=== PATIENT | female | born 1945 | race Caucasian/White ===

== ENCOUNTER → 2019-12-21 13:32 | Outpatient (REF) | payer MEDICARE, SELFPAY | LOC: ANHLAB 13:32 | PROVIDERS: PCP Internal Medicine; Visit Provider Nurse Practitioner | DX: D49.2 Neoplasm of unspecified behavior of bone, soft tissue, and skin (principal) | CPT/HCPCS: 88305 ==

== ENCOUNTER 2022-04-24 00:44 | Day surgery (SDC) | payer MEDICARE, SELFPAY ==
[2022-04-11 14:49] VITALS: BMI 35.0
--- NOTE | 2022-04-11 15:07 | PC.NURSE ---
Report to the Outpatient Waiting Room, entrance under the green pavilion located off [facility], at time __0730 on date _04/24/22 . OR Time: __30 . - You and your visitor will be asked a series of questions to screen for COVID 19 for your protection. - Only one visitor is allowed at this time. - The patient visitor is requested to leave or wait in car when not with patient. - A mask is required within the hospital. Patients may have clear liquids (water, carbonated beverages, clear teas, apple juice) until 3 hours prior to surgery (0630 AM) with a maximum of 20 ounces. - No food from midnight until time of surgery - Infants may have breast milk until 4 hours before surgery, infant formula 6 hours prior to surgery. - Children will be allowed to drink immediately following surgery. If applicable, please bring a bottle or sippy cup to assist with drinking. Juice, water, soda, and popsicles are readily available. For infants on formula, please bring formula the day of surgery. Pacifiers are allowed. Take the following medications with a SIP of water the morning of surgery: __INHALER, EYE DROPS__ Medications to discontinue per ANESTHESIA - PROBIOTIC 3 DAYS PRIOR TO SURGERY, Date to take last dose 04/20/22_ Please no make-up, nail kazakh, hairspray, perfume, deodorant, or body powder the day of surgery. No jewelry (including any body piercings) or valuables the day of surgery, leave them at home. Please take a shower or bath the night before, or the morning of, surgery with an antibacterial soap. Wear comfortable, loose fitting clothing. Children are encouraged to wear pajamas. - Jewelry must be removed prior to entering the operating room. Rings and piercings that are not removed may be cut off. - The hospital will not accept responsibility for valuables. - Please leave all valuables, including medications, at home the day of surgery. If you are going home after surgery, a licensed regional dedicated truck driver must drive you home. - NO public transportation without another adult. - We recommend that an adult stay with you for 24 hours following discharge. - We also recommend that you do not drive, make important decision, drink alcoholic beverages, or take any drugs that were not prescribed by your health care provider for at least 24 hours after your discharge time. For Pediatric surgeries, we recommend two adults accompany the child home (only one inside the building at this time). Follow any additional instructions given to you from your surgeon. If you or anyone in your household have experienced Covid symptoms in the past week, please notify your surgeon or the nurse liaison at the phone number below for possible testing. Telephone instructions given to __PT and asked if any additional questions and then verbalized understanding. Patient advised to call surgeon office or pre surgery nurse liaison [phone] if any additional questions.
--- NOTE | 2022-04-23 10:19 | WPDANESEPPF ---
Anes - Initial Pre Proc Eval Procedure: Operation Date: 04/24/22 09:30 Proposed Procedures p Hysteroscopy Dilation and Curettage Possible Myosure - Manuel Aiken MD Date/Time: 04/23/22 10:19 Surgeon: Manuel Aiken MD Pre Op Diagnosis: endometrial polyp Patient Data Age: 76 Gender: F Height: 1.65 m Weight: 95.45 kg Allergies Allergy/AdvReac Type Severity Reaction Status Date / Time No Known Allergies Allergy Verified 04/11/22 14:45 Home Medications Medication Instructions Recorded Confirmed Type albuterol sulfate 90 mcg/actuation 1 puff inhalation Q4H PRN 12/21/19 04/11/22 History aerosol inhaler (Ventolin HFA) Shortness Of Breath budesonide-formoterol HFA 80 2 puff inhalation Q12H 12/21/19 04/11/22 History mcg-4.5 mcg/actuation aerosol inhaler (Symbicort) cyclosporine 0.05 % eye drops in a 1 drop ophthalmic (eye) Q12H 12/21/19 04/11/22 History dropperette (Restasis) meloxicam 15 mg tablet 15 mg PO DAILY 12/21/19 04/11/22 History montelukast 10 mg tablet 10 mg PO DAILY 12/21/19 04/11/22 History ropinirole 0.5 mg tablet 0.5 mg PO DAILY PRN RESTLESS LEG 12/27/21 04/11/22 History SYNDROME Saccharomyces boulardii 250 mg 250 mg PO BID 03/04/22 04/11/22 History capsule (Daily Probiotic (S. boulardii)) spironolactone 25 mg tablet 25 mg PO DAILY 03/04/22 04/11/22 History oxybutynin chloride 15 mg 15 mg PO DAILY #90 tabs 03/08/22 04/11/22 Rx tablet,extended release 24 hr Patient hx anesthesia problems: none Family hx anesthesia problems: none Results Review: All pre-operative results and documents have been reviewed as part of the pre-operative evaluation. [facility] Past Medical History Medical History Asthma HTN (hypertension) Obesity (BMI 35.0-39.9 without comorbidity) Osteoarthritis Surgical History Surgical History History of bilateral tubal ligation History of dilation and curettage History of knee replacement 2017 Hx of breast reduction, elective Previous section x1 [place] teeth extracted Family History Family History Mother Asthma Other Family history of malignant neoplasm Social History Social History Smoking status: Never smoker Second hand tobacco smoke exposure: No Alcohol intake: never Substance use: never Substance use type: does not use Living arrangements: with family Spiritual care concerns: No Anes - Eval Final PreProcedure Day of Procedure 04/23/22 10:19 Patient weight: obese Heart: regular rate and rhythm Lungs: clear to auscultation and normal air movement Airway: Mallampati scale class II Neurological: alert and oriented Last oral intake: >/= 8 hours ASA classification: III Emergent: no Anesthetic plan: proceed Anesthesia type and monitoring: general GIVS and LMA Results Review: All pre-operative results and documents have been reviewed as part of the pre-operative evaluation. Informed Consent: The patient's anesthetic plan and its attendant risks and benefits were discussed with the patient/family/POA. Questions were solicited and answers provided to the satisfaction of the patient/family/POA.
--- NOTE | 2022-04-23 22:43 | PM.IMHP ---
H&P: HPI History of Present Illness Date/Time: 04/23/22 22:43 Chief Complaint: Abnormal ultrasound finding Narrative: She is scheduled for D and C hysteroscopy due to abnormal ultrasound finding. She had an ultrasound in February due to adnexal cyst on previous ultrasound. The pelvic ultrasound did show a 2.8 cm thickened endometrium with cystic changes. The ovarian cyst was unchanged. She had a subsequent endometrial biopsy in office which showed an endometrial polyp. She has never had any postmenopausal bleeding or spotting. She was recommended for D and C hysteroscopy and removal of endometrial lesion with myosure. She has been informed if final pathology from the curettage specimen shows any abnormal cells then she would be recommended for further more extensive procedure. Review of Systems Review of Systems: All systems reviewed & are unremarkable except as noted in HPI and below Constitutional: Constitutional: Reports no additional constitutional complaints Eyes: Eyes: Reports no additional eye complaints Cardiovascular: Cardiovascular: Reports no additional cardiovascular complaints Respiratory: Respiratory: Reports no additional respiratory complaints Gastrointestinal: Gastrointestinal: Reports no additional gastrointestinal complaints Genitourinary: Genitourinary: Reports no additional female genitourinary complaints and Reports as per HPI Integumentary/Breasts: Skin/Breast: Reports system reviewed and no additional complaints, except as docu Neurologic: Reports system reviewed and no additional complaints, except as documented Psychiatric: Psychiatric: Reports no additional psychiatric complaints Hematologic/Lymphatic: Hematologic/Lymphatic: Reports no additional hematologic/lymphatic complaints PMFSH Past Medical History Medical History Asthma HTN (hypertension) Obesity (BMI 35.0-39.9 without comorbidity) Osteoarthritis Surgical History Surgical History History of bilateral tubal ligation History of dilation and curettage History of knee replacement 2017 Hx of breast reduction, elective Previous section x1 [place] teeth extracted Family History Family History Mother Asthma Other Family history of malignant neoplasm Social History Social History Smoking status: Never smoker Second hand tobacco smoke exposure: No Alcohol intake: never Substance use: never Substance use type: does not use Living arrangements: with family Spiritual care concerns: No Meds Home Medications and Allergies Home Medications Medication Instructions Recorded Confirmed Type albuterol sulfate 90 mcg/actuation 1 puff inhalation Q4H PRN 12/21/19 04/11/22 History aerosol inhaler (Ventolin HFA) Shortness Of Breath budesonide-formoterol HFA 80 2 puff inhalation Q12H 12/21/19 04/11/22 History mcg-4.5 mcg/actuation aerosol inhaler (Symbicort) cyclosporine 0.05 % eye drops in a 1 drop ophthalmic (eye) Q12H 12/21/19 04/11/22 History dropperette (Restasis) meloxicam 15 mg tablet 15 mg PO DAILY 12/21/19 04/11/22 History montelukast 10 mg tablet 10 mg PO DAILY 12/21/19 04/11/22 History ropinirole 0.5 mg tablet 0.5 mg PO DAILY PRN RESTLESS LEG 12/27/21 04/11/22 History SYNDROME Saccharomyces boulardii 250 mg 250 mg PO BID 03/04/22 04/11/22 History capsule (Daily Probiotic (S. boulardii)) spironolactone 25 mg tablet 25 mg PO DAILY 03/04/22 04/11/22 History oxybutynin chloride 15 mg 15 mg PO DAILY #90 tabs 03/08/22 04/11/22 Rx tablet,extended release 24 hr Allergies Allergy/AdvReac Type Severity Reaction Status Date / Time No Known Allergies Allergy Verified 04/11/22 14:45 Exam Const: General: comfortable and no acute distress Orientation/
[2022-04-24] VITALS (7 sets, daily range): BP systolic 98–152; BP diastolic 59–98; PULSE 67–84; RESP 16–20; TEMP 36.2–36.4; O2SAT 94–99
[2022-04-24] MEDS: ACETAMINOPHEN 500 MG TABLET 1000 MG PO (08:06)
[2022-04-24] MEDS: LACTATED RINGERS 1,000 ML 30 ML IV CONT ×2 (08:10→10:18)
--- NOTE | 2022-04-24 08:55 | WPDHPUPDATE1 ---
History and Physical Update Update Date/Time: 04/24/22 08:55 History and Physical has been reviewed, including an updated exam of the patient. There are NO changes in the patient's condition. Risks, benefits, and alternatives have been discussed and questions answered. Patient agrees to proceed with procedure.
[2022-04-24] MEDS: ceFAZolin 2 GM/D5W 50 ML 2 GM/50 ML BAG IVPB (09:17)
[2022-04-24] MEDS: LIDOCAINE HCL 1% PF 30 ML VIAL 10 ML INFILTRATE (09:29)
--- NOTE | 2022-04-24 10:10 | P.OP_ITS ---
Procedure Note - Detailed Date of Procedure 04/24/22 Pre-op Diagnosis endometrial polyp Post-op Diagnosis Same Procedure Performed Dilation and curettage hysteroscopy, myosure excision of endometrial lesion Surgeon Manuel Aiken MD Anesthesia Local and Other (LMA) Indications Patient with an incidental finding of a thickened endometrial stripe on a pelvic ultrasound. No postmenopausal bleeding. Office endometrial biopsy showed endometrial polyp. She was recommended for hysteroscopic removal. Findings Uterus sound to 6.5 cm. The uterine cavity was atrophic. Polypoid structure present at lower uterine segment. insufflation normal saline fluid di screpancy 400 cc. Description of Procedure After form consent was obtained patient was taken to the operating room and adequate IV sedation was administered. She was placed in high lithotomy position and prepped and draped in sterile fashion. Attention was turned to the vagina. Speculum inserted. Single-tooth tenaculum placed on anterior lip of the cervix. 1% lidocaine was injected at the cervical vaginal interface at 2, 5, 8 and 10 oclock position. The small dilator was inserted. The uterine sound was inserted and sounded to 6.5 cm. The cervix was dilated to an 8 Andres dilator. The hysteroscope was inserted. The cavity appeared atrophic. There was a polypoid structure arising from right lower uterine segment. The rest of the cavity appeared atrophic. the camera to the MyoSure had to be changed and the MyoSure apparatus had to be changed due to the camera having a poor picture quality. The 2nd camera the visualization was correct. The myosure was inserted and the lesion was removed. A curettage was then performed. Moderate tissue. The single-tooth tenaculum was removed. A laceration where the tenaculum was placed was repaired with 2.0 vicryl stitch on a UR5 in a figure of eight fashion. Hemostasis was noted. The speculum was removed. The patient tolerated procedure well. Estimated Blood Loss 5 Drains No Packing No Pathology Yes ( 1. MyoSure curetting 2. Endometrial curetting) Complications No immediate complications Condition Stable Disposition Same day [facility] Billing Surgery - Charge Forward: Surgery Billing
== END 2022-04-24 12:17 | disposition home or self-care (01) ==
PROVIDERS: PCP Internal Medicine; Visit Provider Obstetrics & Gynecology
PROC: 0U5B8ZZ Destruction of Endometrium, Via Natural or Artificial Opening Endoscopic (ICD-10-PCS; CPT 58563; principal; 2022-04-24 09:30)
DX: C54.1 Malignant neoplasm of endometrium (principal); N84.0 Polyp of corpus uteri; J45.909 Unspecified asthma, uncomplicated; I10 Essential (primary) hypertension; M19.90 Unspecified osteoarthritis, unspecified site; E66.9 Obesity, unspecified; Z68.35 Body mass index [BMI] 35.0-35.9, adult; Z79.51 Long term (current) use of inhaled steroids
CPT/HCPCS: 58558; 88305; A9270; J0360; J0690; J1100; J2405; J2704; J3010; J7030; J7120